=== PATIENT | female | born 1980 | race Caucasian/White ===

== ENCOUNTER 2020-02-25 13:40 | Outpatient (CLI) | payer OTHER, SELFPAY ==
--- NOTE | ~2020-02-25 | CT_ITS ---
EXAMINATION: CT abdomen pelvis wo/w con DATE: 02/25/2020 14:27 INDICATION: Hematuria TECHNIQUE: Computed tomography (CT) of the abdomen and pelvis was performed without and subsequently with 130 cc Omnipaque 350 intravenous contrast. Automated exposure control and iterative reconstructi on technique were employed. Exam dose: 1271.70 mGy-cm total exam DLP. COMPARISON: None. FINDINGS: The lung bases are clear. Normal heart size. No pericardial or pleural effusion. There is a 5 mm medial segment left hepatic cyst. The liver, spleen, pancreas, adrenal glands are oth erwise normal in appearance. There is a probable pinpoint nonobstructing right renal calculus. No renal mass lesion is detected. No hydroureteronephrosis. The urinary bladder is relative evacuat ed but unremarkable otherwise. Normal caliber of the abdominal aorta. No intraperitoneal or retroperitoneal mass lesion or lymphade nopathy or ascites. The appendix is normal. No bowel obstruction or intraperitoneal free air. There is a small amount of nonspecific free fluid in the pelvis. There is a transitional lumbosacral vertebra. No suspicious osteolytic or osteoblastic lesion is not ed. IMPRESSION: Probable pinpoint nonobstructing right renal calculus 5 mm hepatic cyst Reviewed, dictated and finalized at [facility]. Reviewed, dictated and finalized at [facility].
== END 2020-02-25 13:41 | disposition home or self-care (01) ==
PROVIDERS: PCP Physician Assistant; Visit Provider Physician Assistant
DX: R31.9 Hematuria, unspecified (principal); K76.89 Other specified diseases of liver
CPT/HCPCS: 74178; Q9967

== ENCOUNTER 2021-03-14 12:44 | Emergency (ER) | payer OTHER, SELFPAY ==
--- NOTE | ~2021-03-14 | CT_ITS ---
EXAMINATION: CT chest abdomen pelvis w con DATE: 03/14/2021 15:02 INDICATION: Fall from height. Chest and abdominal pain. TECHNIQUE: Computed tomography (CT) of the chest, abdomen, and pelvis was performed with 100 cc Omnip aque 350 intravenous contrast. Automated exposure control and iterative reconstruction technique were employed. Exam dose: 381.56 mGy-cm total exam DLP. COMPARISON: 02/25/2020 CT abdomen pelvis FINDINGS: CHEST CT: The lungs are clear of infiltrate or consolidation. No pulmonary mass lesion. Normal heart size. N o pericardial or pleural effusion. No hilar or mediastinal mass lesion or lymphadenopathy. There is no thoracic aortic aneurysm or dissection. ABDOMEN/PELVIS CT: The liver, spleen, pancreas, adrenal glands and kidneys are unremarkable. The gallbladder, bile and pancreatic ducts and kidneys are unremarkable. No urinary tract calculus or hydroureteronephrosis. There are four up to 1 cm calcifications in the left adnexal area. The uterus and adnexal areas are otherwise unremarkable. There is a transitional lumbosacral vertebra. No fracture of the chest, thoracic or lumbar spine or pelvis. IMPRESSION: No acute abnormality Reviewed, dictated and finalized at [facility]. Reviewed, dictated and finalized at [facility]. IMPRESSION: No acute abnormality
--- NOTE | ~2021-03-14 | CT_ITS ---
EXAMINATION: CT cervical spine wo con DATE: 03/14/2021 15:01 INDICATION: Syncope, fall, neck pain. Paresthesias. TECHNIQUE: Computed tomography (CT) of the cervical spine was performed without intravenous contrast. Automated exposure control and iterative reconstruction technique were employed. Exam dose: 196.88 mGy-cm total exam DLP. COMPARISON: None FINDINGS: There is reversal of cervical curvature. No fracture or dislocation or locked facet. C1 a nd C2 are normally aligned and the odontoid process is intact. No prevertebral soft tissue swelling. Cervical interspaces are intact. IMPRESSION: Reversal of cervical curvature; no fracture or dislocation Reviewed, dictated and finalized at [facility]. Reviewed, dictated and finalized at [facility].
--- NOTE | ~2021-03-14 | CT_ITS ---
EXAMINATION: CT brain wo con DATE: 03/14/2021 15:01 INDICATION: Syncope. Fell into tub, striking head. TECHNIQUE: Computed tomography (CT) of the head was performed without intravenous contrast. The mA wa s adjusted according to patient size. Iterative reconstruction technique was employed. Exam dose: 60 5.33 mGy-cm total exam DLP. COMPARISON: None FINDINGS: No intracranial mass lesion or hemorrhage or cerebrovascular accident. No midline shift or mass effect effect. Normal ventricular size. Normal cortés-white matter differentiation. No subdural or epidural hematoma. No fracture or bone destruction of the cranial vault. The mastoid air cells and included paranasal si nuses are normally developed and aerated. IMPRESSION: Negative examination Reviewed, dictated and finalized at [facility] Reviewed, dictated and finalized at [facility]. IMPRESSION: Negative examination
--- NOTE | ~2021-03-14 | XR_ITS ---
EXAMINATION: XR chest 2V DATE: 03/14/2021 13:15 INDICATION: Chest pain TECHNIQUE: PA and lateral views of the chest are obtained. COMPARISON: 08/12/2014 FINDINGS: The lungs are free of acute opacities. There is no pleural effusion or pneumothorax. The ca rdiomediastinal silhouette is normal. The visualized bones and soft tissues are unremarkable. IMPRESSION: 1. No acute cardiopulmonary abnormality. Reviewed, dictated and finalized at [facility].
[2021-03-14 12:45] VITALS: BP 115/50; PULSE 67; RESP 20; TEMP 36.3; O2SAT 99
--- NOTE | 2021-03-14 13:07 | ECG_ITS ---
Measurements Intervals [place] Rate: 56 P: -1 DC: 104 QRS: 76 QRSD: 96 T: 38 QT: 427 QTc: 414 Interpretive Statements SINUS BRADYCARDIA WITH SHORT DC INTERVAL INCOMPLETE RIGHT BUNDLE BRANCH BLOCK BORDERLINE ECG Electronically Signed On 03-14-2021 14:24:41 CDT by Gabriel Angeles D.O.
--- NOTE | 2021-03-14 13:31 | ED.FALL ---
HPI - Fall General Chief Complaint: Fall Stated Complaint: FELL OFF A LADDER- LOC Time Seen by Provider: 03/14/21 13:06 Source: patient Mode of arrival: ambulatory Limitations: no limitations History of Present Illness HPI Narrative: This is a 40 year old female that presents to the ER after a fall from a ladder today. Reports she was about 4 or 5 steps up on the ladder. The ladder went out from under her causing her to fall onto the side of her bathtub. She fell onto her abdomen and chest. Since she has had pain in this area. Reports after the accident she was on her hands and knees on the bathroom floor. She was starting to feel kind of lightheaded and then passed out. Does report hitting her head on the cabinet. Denies fever, vision changes, vomiting, numbness, or weakness. Related Data Home Medications Medication Instructions Recorded Confirmed bupropion HCl 100 mg tablet,12 hr 100 mg PO DAILY 05/05/20 05/05/20 sustained-release spironolactone 25 mg tablet 25 mg PO DAILY 05/05/20 05/05/20 Allergies Allergy/AdvReac Type Severity Reaction Status Date / Time No Known Allergies Verified 05/05/20 09:25 Review of Systems Review of Systems: CONSTITUTIONAL: Denies fever EYES: Denies visual changes CARDIOVASCULAR: Reports chest pain RESPIRATORY: Denies dyspnea. GASTROINTESTINAL: Reports abdominal pain. Denies nausea, vomiting MUSCULOSKELETAL: Reports joint pain, and myalgia. NEUROLOGIC: Denies headache, numbness, or weakness. All systems reviewed & are unremarkable except as noted in HPI and below PMFSH Past Medical History Medical History Anxiety Vaginal delivery x 3 Surgical History Surgical History H/O LEEP Family History Family History Grandparent Diabetes mellitus Family history of malignant neoplasm of male breast Social History Social History Smoking status: Never smoker Second hand tobacco smoke exposure: No Alcohol intake: current Exam Narrative: GENERAL: Well-appearing, well-nourished, and in no acute distress. HEAD: Normocephalic, atraumatic. EYES: PERRLA and EOMI. ENT: Nares clear, no rhinorrhea or epistaxis. Mucous membranes moist. Oropharynx without tonsillar hypertrophy exudate or other lesions. Bilateral TMs pearly cortés non-bulging NECK: Supple. No adenopathy or masses. Tender to palpation of midline cervical spine CHEST: Clear to auscultation. No respiratory distress. No wheezes rales or rhonchi HEART: Regular rate and rhythm. No murmur heard. Normal peripheral pulses. ABDOMEN: Soft, nondistended, normal active bowel sounds. Mild tenderness to palpation throughout the abdomen, without guarding BACK: No midline thoracic or lumbar spine tenderness EXTREMITIES: Normal range of motion. No edema. SKIN: Warm, dry, no rash. NEURO: No focal deficits. Alert and oriented x3. Cranial nerves II through XII grossly intact. Normal [id number]. Normal gait PSYCH: Normal mood and affect Course Vital Signs Vital signs: Vital Signs Temperature 97.3 F L 03/14/21 12:45 Pulse Rate 67 03/14/21 12:45 Respiratory Rate 20 03/14/21 12:45 Blood Pressure 115/50 L 03/14/21 12:45 Pulse Oximetry 99 03/14/21 12:45 Temperature 97.3 F L 03/14/21 12:45 Pulse Rate 55 L 03/14/21 16:35 Respiratory Rate 18 03/14/21 16:35 Blood Pressure 96/60 L 03/14/21 16:35 Pulse Oximetry 100 03/14/21 16:35 MDM - Fall MDM Narrative Medical decision making narrative: Patient presents to the emergency department after a fall from height today. Reporting abdominal and chest pain. Also a syncopal episode after the fall. Her vitals are stable. She is neurologically intact. CBC and metabolic panel without concerning findings. Baseline troponin is negative. No
[2021-03-14 14:28] LABS: Basophils Percent Auto 0.2 % (0.2-1.2); Eosinophils Percent Auto 0.1 % (0-4.4); Hematocrit 39.1 % (37.0-47.0); Hemoglobin 12.9 g/dL (12.0-15.0); Immature Granulocyte Absolute 0.03 K/mm3 (0.00-0.031); Immature Granulocyte Percent A 0.4 % (0-0.5); Lymphocytes Percent Auto 17.3 % (18.3-44.2); Mean Corpuscular Hemoglobin 29.9 pg (26-34); Mean Corpuscular Volume 90.5 fl (80-100); Mean Platelet Volume 9.4 fl (7.4-10.4); Monocytes Absolute Auto 0.4 K/mm3 (0.1-0.6); Monocytes Percent Auto 5.3 % (2.6-8.5); Neutrophils Absolute Auto 6.2 K/mm3 (1.3-6.7); Neutrophils Percent Auto 76.7 % (45.5-73.1); Platelet Count Result 195 k/mm3 (150-375); Red Blood Count 4.32 M/mm3 (4.2-5.4); Red Cell Distribution Width 12.6 % (11.5-14.5); White Blood Count 8.1 K/mm3 (4.5-10.0)
[2021-03-14 14:38] LABS: Alanine Aminotransferase 13 U/L (4-35); Albumin Level 4.5 g/dL (3.5-5.1); Alkaline Phosphatase 42 U/L (38-126); Anion Gap 8 mmol/L (8-16); Aspartate Amino Transferase 18 U/L (14-36); Bilirubin,Total 0.6 mg/dL (0.2-1.3); Blood Urea Nitrogen 19 mg/dL (7-17); Calcium 9.6 mg/dL (8.4-10.2); Carbon Dioxide 24 mmol/L (22-30); Chloride 106 mmol/L (98-107); Estimated CRCL calculation 87 ml/min; Estimated Glomerular Filt Rate > 60; Glucose 97 mg/dL (65-110); Lipase 58 U/L (23-300); Potassium 3.8 mmol/L (3.4-5.0); Sodium 138 mmol/L (137-145)
[2021-03-14 14:39] LABS: Partial Thromboplastin Time 27.8 SECONDS (22.3-36.8)
[2021-03-14 15:23] VITALS: BP 101/60; PULSE 57
[2021-03-14 15:25] VITALS: BP 105/65; PULSE 60
[2021-03-14 15:27] VITALS: BP 99/59; PULSE 86
[2021-03-14] MEDS: ACETAMINOPHEN 500 MG TABLET 1000 MG PO (16:34)
[2021-03-14] MEDS: SODIUM CHLORIDE 0.9% IV 500 ML 999 ML IV CONT (16:34)
[2021-03-14 16:35] VITALS: BP 96/60; PULSE 55; RESP 18; O2SAT 100
[2021-03-14 16:45] LABS: Troponin I < 0.012 ng/mL (0.000-0.034)
[2021-03-14 17:50] VITALS: BP 96/60; PULSE 59; RESP 18; TEMP 37; O2SAT 99
--- NOTE | 2021-03-19 15:11 | PC.NURSE ---
late note 03/14/21 1805 IV NS 1L completed
== END 2021-03-14 17:50 | disposition home or self-care (01) ==
PROVIDERS: Physician Assistant; Emergency Provider Emergency Medicine; PCP Physician Assistant
DX: R10.9 Unspecified abdominal pain (principal); R07.89 Other chest pain; R55 Syncope and collapse; F41.9 Anxiety disorder, unspecified; W11.XXXA Fall on and from ladder, initial encounter; R00.1 Bradycardia, unspecified; I45.10 Unspecified right bundle-branch block
CPT/HCPCS: 36415; 70450; 71046; 71260; 72125; 74177; 80053; 81025; 83690; 84484; 85025; 85610; 85730; 93005; 96360; 99284; A9270; J7040; Q9967

== ENCOUNTER → 2023-08-24 13:32 | Outpatient (CLI) | payer BC, SELFPAY ==
--- NOTE | ~2023-08-24 | MM_ITS ---
EXAMINATION: MM screening erick BI w paul HISTORY: Screening TECHNIQUE: Craniocaudal and mediolateral oblique 3-D tomosynthesis images were obtained and synthetic 2-D images were generated. CAD analysis was submitted and interpreted. COMPARISON: Not dense: There are scattered areas of fibroglandular density. BREAST PARENCHYMAL COMPOSITION: Not dense: There are scattered areas of fibroglandular density. FINDINGS: There is no evidence of suspicious mass, calcification, or architectural distortion to sugg est malignancy in either breast. There has been no suspicious interval change. IMPRESSION: 1. No mammographic evidence of malignancy. 2. Recommend routine screening mammography in one year. BI-RADS Category 1: Negative Reviewed, dictated and finalized at [facility]. [facility] REPA[employer]
== END ==
PROVIDERS: PCP Obstetrics & Gynecology; Visit Provider Obstetrics & Gynecology
DX: Z12.31 Encounter for screening mammogram for malignant neoplasm of breast (principal)
CPT/HCPCS: 77063; 77067

== ENCOUNTER 2024-03-02 11:13 | Outpatient (CLI) | payer BC, SELFPAY ==
--- NOTE | ~2024-03-02 | US_ITS ---
EXAMINATION: US pelvic complete w TV DATE: 03/02/2024 11:42 INDICATION: Displacement of intrauterine contraceptive device. TECHNIQUE: Multiple transabdominal and transvaginal sonographic images of the pelvis were obtained. COMPARISON: None. FINDINGS: TRANSABDOMINAL ULTRASOUND: The uterus measures 8.6 x 5.6 x 3.8 cm. There is no free fluid in the pelvis. TRANSVAGINAL ULTRASOUND: The endometrial complex measures 5 mm in thickness. There is an intrauterine device in expected posit ion. The right ovary measures 2.5 x 2.7 x 1.8 cm. The left ovary measures 2.0 x 2.3 x 1.9 cm. There i s normal vascular flow in the ovaries. IMPRESSION: 1. Intrauterine device in expected position. Reviewed, dictated and finalized at [facility].
== END 2024-03-02 11:14 | disposition home or self-care (01) ==
PROVIDERS: PCP Obstetrics & Gynecology; Visit Provider Nurse Practitioner Family
DX: T83.32XA Displacement of intrauterine contraceptive device, initial encounter (principal)
CPT/HCPCS: 76830; 76856